=== PATIENT | male | born 1970 | race Caucasian/White ===

== ENCOUNTER 2024-10-15 06:05 | Observation (INO) ==
--- NOTE | 2024-09-27 13:01 | PAT Medication Instructions ---
Medication Instructions Date of Service September 27, 2024 Home Medications Medication Instructions Recorded diclofenac sodium 1 % topical gel 4 g topical QID #100 grams 04/27/24 baclofen 10 mg tablet 10 mg PO BID #60 tabs 07/30/24 meloxicam 7.5 mg tablet 7.5 mg PO DAILY #30 tabs 08/17/24 gabapentin 300 mg capsule 300 mg PO TID #90 caps 09/01/24 hydroxyzine pamoate 25 mg capsule (Vistaril) 25 mg PO HS PRN Anxiety lisinopril 10 mg tablet 10 mg PO QAM pravastatin 40 mg tablet 40 mg PO QAM sertraline 200 mg capsule 200 mg PO QAM medical marijuana 1 dose inhalation UD PRN anxiety/sleep diclofenac sodium 1 % topical gel 4 g topical QID baclofen 10 mg tablet 10 mg PO BID meloxicam 7.5 mg tablet 7.5 mg PO DAILY gabapentin 300 mg capsule 300 mg PO TID aripiprazole 5 mg tablet 5 mg PO HS buspirone 7.5 mg tablet 7.5 mg PO HS ASK your surgeon for instructions meloxicam 7.5 mg tablet 7.5 mg PO DAILY STOP taking 24 hours before surgery diclofenac sodium 1 % topical gel 4 g topical QID DO NOT take the morning of surgery lisinopril 10 mg tablet 10 mg PO QAM medical marijuana 1 dose inhalation UD PRN anxiety/sleep Take morning of surgery With a small sip of water, OTHERWISE NOTHING TO EAT OR DRINK AFTER MIDNIGHT: pravastatin 40 mg tablet 40 mg PO QAM sertraline 200 mg capsule 200 mg PO QAM baclofen 10 mg tablet 10 mg PO BID gabapentin 300 mg capsule 300 mg PO TID Take evening before surgery hydroxyzine pamoate 25 mg capsule (Vistaril) 25 mg PO HS PRN Anxiety (if needed) medical marijuana 1 dose inhalation UD PRN anxiety/sleep (if needed) baclofen 10 mg tablet 10 mg PO BID gabapentin 300 mg capsule 300 mg PO TID aripiprazole 5 mg tablet 5 mg PO HS buspirone 7.5 mg tablet 7.5 mg PO HS Other Notes If you have any questions please call us at [phone] or [phone] or [phone] or [phone]
--- NOTE | 2024-10-01 14:02 | Anesthesiology Consultation ---
Date of Service October 01, 2024 Assessment & Plan (1) Encounter for pre-operative examination: Infectious disease screening: Per assessment on 10/01/24- No known recent infectious disease contacts or current infectious disease symptoms. Chart Review Chart Review: Acceptable Risk for Surgery and Patient seen in Pre Admission Testing Teaching & Discussion Pre-Anesthesia Teaching/Discussion Notes: Instructed NPO after midnight before surgery,except medications with 15 cc of water. Medication instructions provided according to the PAT guidelines. History Surgery Operation Date: 10/15/24 12:50 Proposed Procedures p L3,L4 Laminectomy - Sedrick Salas MD Height/Weight Height: 5 ft 10 in Weight: 117.2 kg Allergies Allergy/AdvReac Type Severity Reaction Status Date / Time atorvastatin [From Lipitor] AdvReac Unknown Joint Pain Verified 09/23/24 13:53 Medications Home Medications Medication Instructions Recorded Confirmed Last Taken hydroxyzine pamoate 25 mg capsule 25 mg PO HS PRN Anxiety 01/08/24 09/23/24 Unknown (Vistaril) lisinopril 10 mg tablet 10 mg PO QAM 01/08/24 09/23/24 Unknown pravastatin 40 mg tablet 40 mg PO QAM 01/08/24 09/23/24 Unknown sertraline 200 mg capsule 200 mg PO QAM 01/08/24 09/23/24 Unknown diclofenac sodium 1 % topical gel 4 g topical QID #100 grams 04/27/24 09/23/24 Unknown meloxicam 7.5 mg tablet 7.5 mg PO DAILY #30 tabs 08/17/24 09/23/24 Unknown gabapentin 300 mg capsule 300 mg PO TID #90 caps 09/01/24 09/23/24 Unknown aripiprazole 5 mg tablet 5 mg PO HS 09/23/24 09/23/24 Unknown buspirone 7.5 mg tablet 7.5 mg PO HS 09/23/24 09/23/24 Unknown baclofen 10 mg tablet 10 mg PO BID #60 tabs 09/28/24 Unknown Past Medical History Medical History Anxiety Cervical stenosis of spinal canal Dyslipidemia HTN (hypertension) Hyperlipidemia Lumbar pain s/p steroid injections 09/07/24 Lumbar stenosis Peripheral neuropathy Sleep apnea Cannot tolerate CPAP Tremor hands Exercise / Class Metabolic Activity III < 4 Walking/Shop/Light housework (one FS: No CP, mild SOB) Past Surgical History Surgical History History of carpal tunnel release of both wrists History of surgery on arm Right Hx of bilateral cataract extraction Hx of colonoscopy Past Anesthesia History No Hx of Anesthesia Complications and No Family Hx of Anesthesia Complications History of PONV No Hx of PONV and No Hx of Motion Sickness Social History Smoking Status: Former smoker Do You Dip or Chew Tobacco: No Smoking End Date: Quit 4-5 years ago Hx Alcohol Use: No (over 2 yrs no alcohol) Hx Substance Use: No substance use type: marijuana (Hx medical marjuana use (none current)) Review of Systems Patient denies chest pain, shortness of breath, dyspnea on exertion, fever, chills, cough, wheezing, palpitations. Physical Exam Vital Signs BP 140/74 P 79 TEMP 98.6 SP02 95%RA RESP 16 Physical Full cervical extension range of motion. Full TMJ range of motion. TMD > 3.5 finger breaths Mallampati Score III Dentition: upper front tooth chipped, missing sides/molars, + cap Lungs: clear throughout to auscultation Cardiac: regular rate and rhythm, no murmurs noted Spine: normal Carotid arteries: negative bruit Extremities: no LE edema Short, thick neck Lab Results Anesthesia Preop Results Results Anesthesia Widget: WBC 10.32 K/ul (4.8-10.8) 10/01/24 Hgb 14.2 g/dl (14.0-18.0) 10/01/24 Hct 43.3 % (42.0-52.0) 10/01/24 Plt 239 K/uL (130-400) 10/01/24 Na 139 mmol/L (136-145) 10/01/24 K 4.4 mmol/L (3.5-5.1) 10/01/24 Cl 103 mmol/L (98-107) 10/01/24 CO2 30 mmol/L (21-32) 10/01/24 BUN 17 mg/dl (6-23) 10/01/24 Creat 1.23 mg/dl (0.6-1.4) 10/01/24 Glucose Level 73 mg/dl (70-99(Fasting)) 10/01/24 PT 10.3 Seconds (9.0-12.0) 10/01/24 PTT 27 Seconds (21-31) 10/01/24 INR 0.9 (0.9-1.1) 10/01/24 HA1c 6.1 % (4.5-5.6) H 10/01/24 Testing Electrocardiogram Date: 10/01/24 NSR at 63bpm. "Normal ECG"
[2024-10-15] MEDS: LR 60ML/HR IV SCH (06:36)
[2024-10-15] MEDS: LR 15ML/HR IV SCH (06:36)
[2024-10-15] MEDS ORDERED: fentaNYL citrate PF 100 MCG/2 ML VIAL ONE (06:36)
[2024-10-15] MEDS ORDERED: MIDAZOLAM HCL 1 MG/ML 2ML VIAL ONE (06:36)
[2024-10-15] MEDS ORDERED: DEXAMETHASONE SOD INJ 4 MG/ML VIAL ONE (06:36)
[2024-10-15] MEDS ORDERED: PROPOFOL IV EMULSION 10 MG/ML 20 ML VIAL IV ONE (06:36)
[2024-10-15] MEDS ORDERED: ONDANSETRON INJ 2 MG/ML 2 ML VIAL ONE (06:36)
[2024-10-15] MEDS ORDERED: LIDOCAINE 2% 2 ML VIAL/AMP(20MG/ML) INFIL ONE (06:36)
[2024-10-15] MEDS ORDERED: ROCURONIUM BROMIDE 10 MG/ML 5 ML VIAL IV ONE (06:37)
[2024-10-15] MEDS ORDERED: ONDANSETRON INJ 2 MG/ML 2 ML VIAL IV PRN ×2 (07:07→09:36)
[2024-10-15] MEDS ORDERED: ATROPINE SULFATE 0.1 MG/ML 10ML SYR IV PRN (07:07)
[2024-10-15] MEDS ORDERED: ePHEDrine sulfate 50 MG/ML AMP IV PRN (07:07)
--- NOTE | 2024-10-15 07:33 | History & Physical Bridge Note ---
Date of Service October 15, 2024 History & Physical Bridge Note I have examined the patient, reviewed the History & Physical and in the interval since the performance of the History & Physical I have noted the following changes of clinical significance: no changes noted Plan for L4-5 laminectomy.
[2024-10-15] MEDS: ceFAZolin 2000MG 2,000 MG/15 ML SYR IV SCH ×2 (07:37→16:13)
[2024-10-15] MEDS ORDERED: PHENYLEPHRINE 100MCG/ML 5ML SYR ONE (08:03)
[2024-10-15] MEDS ORDERED: ePHEDrine sulfate 50 MG/5 ML SYR ONE (08:23)
[2024-10-15] MEDS: VANCOMYCIN HCL 1000MG/20ML VIAL ONE ×2 (08:33→09:08)
[2024-10-15] MEDS: FLOSEAL HEMOSTATIC MATRIX 10ML TOP ONE (08:51)
[2024-10-15] MEDS ORDERED: SUGAMMADEX SODIUM 200 MG/2 ML VIAL IV ONE (09:06)
[2024-10-15] MEDS: GELATIN SPONGE SZ 100 ONE (09:09)
[2024-10-15] MEDS: BUPIVACAINE 0.5 % 5 MG/1 ML MPF 30ML VIAL ONE (09:14)
--- NOTE | 2024-10-15 09:20 | Post Operative Brief Note ---
PG Immediate Post Op with CF Date of Surgery October 15, 2024 Pre & Post Diagnosis Pre-Op Diagnosis: Lumbar Stenosis with Claudication Lumbar Radiculopathy Lumbar Spondylosis Post-Op Diagnosis: Lumbar Stenosis with Claudication Lumbar Radiculopathy Lumbar Spondylosis I identified the patient and participated in the time-out.: Yes Procedure L3 Laminectomy L4 Laminectomy Surgeon Sedrick Salas MD Grated Cheese Maker Namrata CARABALLO Estimated Blood Loss 50 Findings Consistent with Post-Op Diagnosis Specimens Specimen Description: none per surgeon Drains Sandeep-Valdez Drain (10f) Complications none Disposition Disposition: Recovery Room
[2024-10-15] MEDS ORDERED: METOCLOPRAMIDE HCL INJ 5 MG/ML 2 ML VIAL IV PRN (09:36)
[2024-10-15] MEDS ORDERED: PROMETHAZINE 12.5 MG/50.5 ML BAG IV PRN (09:36)
[2024-10-15] MEDS ORDERED: NALOXONE HCL 0.4 MG/1 ML VIAL/CARP IV PRN (09:36)
[2024-10-15] MEDS ORDERED: ALUMINUM/MAGNESIUM SUSP 30 ML UDC PO PRN (09:36)
[2024-10-15] MEDS ORDERED: SOD PHOSPHATE/SOD BIPHOSPHATE ENEMA 132 ML BTL PR PRN (09:36)
[2024-10-15] MEDS ORDERED: DO NOT ADMINISTER PNEUMOCOCCAL VACCINE PRN (09:36)
[2024-10-15] MEDS ORDERED: ACETAMINOPHEN 1,000 MG/100 ML VIAL IV PRN (09:36)
[2024-10-15] MEDS ORDERED: MAGNESIUM HYDROXIDE SUSP 30 ML UDC PO PRN (09:36)
[2024-10-15] MEDS ORDERED: ONDANSETRON 4 MG OD TAB PO PRN (09:36)
[2024-10-15] MEDS ORDERED: oxyCODONE HCL IR 5 MG TAB (IMMEDIATE RELEASE) PO PRN (09:36)
[2024-10-15] MEDS ORDERED: DO NOT ADMINISTER FLU VACCINE PRN (09:36)
[2024-10-15] MEDS ORDERED: LORazepam 2 MG/1 ML VIAL IV PRN (09:36)
[2024-10-15] MEDS ORDERED: HYDROmorphone INJ 0.5 MG/0.5 ML SYR IV PRN (09:36)
[2024-10-15] MEDS ORDERED: FAMOTIDINE 20 MG TAB PO PRN (09:36)
[2024-10-15] MEDS ORDERED: ACETAMINOPHEN 500 MG TAB PO PRN (09:36)
[2024-10-15] MEDS ORDERED: hydrOXYzine HCl 25 MG TAB PO PRN ×2 (09:36→09:42)
[2024-10-15] MEDS ORDERED: diphenhydrAMINE Capsule 25 MG CAP PO PRN (09:36)
[2024-10-15] MEDS ORDERED: bisacodyL 10 MG SUPP PR PRN (09:36)
--- NOTE | 2024-10-15 09:43 | Operative Report ---
PG Post Operative Report Pre & Post Diagnosis Operation Date: 10/15/24 07:30 Pre-Op Diagnosis: Lumbar stenosis, lumbar radiculopathy, neurogenic claudication Post-Op Diagnosis: Lumbar stenosis, lumbar radiculopathy, neurogenic claudication I identified the patient and participated in the time-out.: Yes Procedure Operation Date: 10/15/24 07:30 Actual Procedures L3 laminectomy with medial facetectomy (19426) L4 Laminectomy with medial facetectomy (97815) Surgeon Sedrick Salas MD Environmental Education Specialist Namrata CARABALLO Estimated Blood Loss 50 Findings Consistent with Post-Op Diagnosis Specimens None Drains ROMULO Drain Anesthesia Type General Complications none Disposition Disposition: Recovery Room Indications The patient has suffered from severe and unrelenting symptoms despite exhaustive conservative management. After discussing the benefits and risks of continued conservative management versus operative intervention, the patient elected to proceed with surgery. Description of Procedure In the preoperative holding area, the patient's lumbar spine was marked with a marking pen. The patient was taken to the operating room and anesthesia was initiated. The patient was placed prone on a Sandeep table with Roosevelt Frame. The patients back was prepped and draped in typical sterile fashion. Antibiotics were administered. A timeout was performed. Skin incision was approximated using preoperative fluoroscopy shots. The skin was incised with a 10 blade scalpel. Bovie electrocautery was used to dissect down to the lumbodorsal fascia and control bleeding. Fascia was split midline over the spinous processes of L3 and L4. I then completed subperiosteal dissection to expose the L3 and L4 lamina with care taken to preserve the facet capsules at the L3-4 and L4-5 level. Mayuri clamp was placed onto the L4 spinous process and a second x-ray was taken to verify the correct level. I then removed the spinous processes of L3 and L4 with a rongeur. The lamina of the L4 level was then thinned with a high-speed bur to expose the ligamentum flavum, additional bone was removed with a Kerrison rongeur ensuring to leave adequate bone stock at the L4-5 pars interarticularis to prevent iatrogenic instability. Then used a nerve hook to split the ligamentum flavum midline, ligamentum flavum was removed completely between the L4 and L5 levels using a Kerrison rongeur with Kerr elevator used to protect the dura. There is found to be hypertrophy of the facet joints at L4-5 bilaterally contributing to his lateral recess stenosis and neurologic compression. The facet joints were undercut bilaterally, less than 50% of the facet joint was resected to ensure continuing stability. I was now able to easily pass a Murray ball probe into the L4-5 foramen bilaterally as well as along the L4-5 recess bilaterally with excellent decompression of the traversing nerve roots. I then moved rostrally to the L3 lamina. Once again this was thinned with a high-speed bur to expose the ligamentum flavum. Further lamina was resected using Kerrison rongeur. Care was taken to maintain adequate bone stock of the pars interarticularis bilaterally. Tenderness with the ligamentum flavum midline with a nerve hook, I then used Kerrison rongeurs to remove the ligamentum flavum between L3-4 kriss with Kerrison rongeur using Kerr elevator to protect the dura. Again noted there is facet hypertrophy contributing to lateral recess stenosis. Medial facet joints were undercut bilaterally using a Kerrison rongeur to decompress the lateral recess. Once again I was able to pass a Murray ball probe into the bilateral foramen at L3-4 as well as along the lateral recess at L3-4 bilaterally ensuring good decompression of the traversing nerve roots at the L3-4 interspace. Bleeding was controlled with bipolar electrocautery and hemostatic agents. Drain was placed deep exiting out through the skin. Fascia was closed with running oh strata fix suture. Subcutaneous layer was irrigated once again, vancomycin powder applied along the wound edges, and the skin was closed with 2- 0 Vicryl and dori. Sterile dressing was applied, drain attached to suction. Patient was transferred back to the hospital bed and taken to PACU in stable condition. I attest to the content of the Intraoperative Record and any orders documented therein. Any exceptions are noted below.
[2024-10-15] MEDS: fentaNYL citrate PF 100 MCG/2 ML VIAL IV PRN (09:45)
--- NOTE | 2024-10-15 10:23 | Fluoroscopy Report ---
FL spine 1V any level CLINICAL HISTORY: L3-L4 LAMINECTOMIES COMPARISON STUDY: None FLUOROSCOPY TIME: 8 seconds FLUOROSCOPY IMAGES: 3 EXPOSURE DOSE: 3.2 mGy FINDINGS: Fluoroscopy was provided for lumbar laminectomy. IMPRESSION: Intraoperative fluoroscopy. ACT 112: Negative or not required by law. Electronically signed by: Charli Bryant M.D. 10/15/2024 10:22 AM
--- NOTE | 2024-10-15 12:22 | Anesthesiology Progress Note ---
Date of Service October 15, 2024 Anesthesia Post Procedure Vital Signs Vital Signs: Temp Pulse Resp BP Pulse Ox O2 Del Method O2 Flow Rate 10/15/24 12:00 75 17 104/77 97 Room Air 2 10/15/24 11:30 75 13 113/93 96 Room Air 2 10/15/24 11:15 79 10 L 101/67 94 Room Air 2 10/15/24 11:00 80 13 107/77 95 Room Air 2 10/15/24 10:45 36.8 C 77 14 107/81 94 Room Air 2 10/15/24 10:30 79 12 115/61 94 Room Air 2 10/15/24 10:20 82 13 136/86 95 Room Air 2 10/15/24 10:10 83 12 138/101 H 96 Room Air 2 10/15/24 10:00 79 10 L 134/97 95 Room Air 2 10/15/24 09:50 80 12 128/85 98 Oxymask 5 10/15/24 09:40 76 12 115/92 98 Oxymask 5 10/15/24 09:34 81 18 131/99 94 Oxymask 10 10/15/24 06:21 36.7 C 65 18 131/91 95 Room Air Pain Intensity Back: Pain Intensity: 3 Right Leg: Pain Intensity: 5 Right Arm: Pain Intensity: 4 Transfer of Care Handoff Completed per policy Notes Mental Status: alert / awake / arousable Patient Amnestic to Procedure: Yes Nausea / Vomiting: adequately controlled Pain: adequately controlled Airway Patency, RR, SpO2: stable & adequate BP & HR: stable & adequate Hydration State: stable & adequate Anesthetic Complications: no major complications apparent and Pt Satisfied with anesthetic care
[2024-10-15] MEDS: KETOROLAC 30 MG/ML VIAL IV SCH (14:50)
[2024-10-15] MEDS: tiZANidine HCL 4 MG TABLET PO SCH (15:13)
[2024-10-15] MEDS: GABAPENTIN 300 MG CAP PO SCH (15:13)
[2024-10-15] MEDS: DOCUSATE SODIUM/SENNA 50/8.6MG TAB PO SCH (21:17)
[2024-10-15] MEDS: ARIPiprazole 5 MG TAB PO SCH (21:17)
[2024-10-15] MEDS: busPIRone 7.5 MG TAB PO SCH (21:18)
[2024-10-15] MEDS: BACLOFEN 10 MG TAB PO SCH (21:19)
[2024-10-16] MEDS: KETOROLAC 30 MG/ML VIAL IV PRN (00:17)
[2024-10-16] MEDS: LORazepam 0.5 MG TAB PO PRN (00:18)
[2024-10-16] MEDS: POLYETHYLENE (MIRALAX) 17 GM PACK PO SCH (05:50)
[2024-10-16 07:34] VITALS: BP 111/72; PULSE 76; RESP 16; TEMP 97.5; O2SAT 96
[2024-10-16] MEDS: PRAVASTATIN SOD 40 MG TAB PO SCH (07:36)
[2024-10-16] MEDS: lisinopril 10 MG TAB PO SCH (07:36)
--- NOTE | 2024-10-16 10:07 | Orthopedic Progress Note ---
Date of Service October 16, 2024 Assessment & Plan (1) S/P lumbar laminectomy: Subjective s/p Lumbar decompression, pre op radicular pain resolved, no issues overnight Review of Systems All systems reviewed & are unremarkable except as noted in HPI & below. Physical Exam drain low output, will dc neuro intact L2-S1 myotomes and dermatomes bilat Results & Data Results & Data Laboratory Results . Diagnostic Findings . PG Care Time/CCT Total # of Minutes Spent Total Time Spent with Patient: Total time spent is greater than 50% in coordination of care (as documented) at patient's floor/unit and/or counseling patient: Coding Level of Care Code 65001 Post Operative Follow-Up Diagnoses S/P lumbar laminectomy Z98.890
--- NOTE | 2024-10-16 10:21 | Discharge Summary ---
Date of Service October 16, 2024 Principal Diagnosis Same as "Discharge Diagnosis" noted below under Discharge Instructions. Discharge Exam drain low output, will dc neuro intact L2-S1 myotomes and dermatomes bilat Discharge Data Procedures Performed Operation Date: 10/15/24 07:30 Actual Procedures p L3, L4 Laminectomies(Not Applicable) - Sedrick Salas MD Ordered Studies 10/15/24 07:30 [place] spine 1V any level Routine Hospital Course (1) S/P lumbar laminectomy: (2) Lumbar radiculopathy: Plan Uneventful post op course following lumbar decompression. Patient voided, tolerated PO diet, pain well controlled, ambulating well. PG Care Time/CCT Total # of Minutes Spent Total Time Spent with Patient: Total time spent is greater than 50% in coordination of care (as documented) at patient's floor/unit and/or counseling patient: Discharge Plan Discharge Items Patient Disposition: Home - Self-Care Reason For Visit: Spinal Stenosis, Lumbar Region with Neurogenic Cla Discharge Diagnosis: Lumbar Stenosis with Radiculopathy Activity: As commented below Activity Comment: follow instructions from office Lifting: No more than 10 pounds Bathing Comment: Do not submerge in tubs/pools etc, shower on day 3, pat incision dry Non-emergency contact: Surgeon Call non-emergency contact if: your symptoms worsen, your pain is worsening, your temperature is above 101, your wound has increased redness and your wound has increased drainage Follow-up/Referrals: Zack Sanchez MD [Outside Practitioners] - Diet: Regular Addtl Attending Provider Instructions: Follow post op instructions from office Follow up 2 weeks in office Pending Studies at Discharge: No Stand-Alone Forms: [facility] [employer], Smoking Cessation Medications and DC Order Prescriptions: New oxycodone 5 mg Tablet 5 - 10 mg PO Q6 PRN (Reason: post op pain) Qty: 60 0RF gabapentin 300 mg Capsule 300 mg PO TID 30 Days Qty: 90 0RF Continued baclofen 10 mg tablet 10 mg PO BID Qty: 60 2RF meloxicam 7.5 mg tablet 7.5 mg PO DAILY Qty: 30 0RF lisinopril 10 mg tablet 10 mg PO QAM pravastatin 40 mg tablet 40 mg PO QAM sertraline 200 mg capsule 200 mg PO QAM hydroxyzine pamoate [Vistaril] 25 mg capsule 25 mg PO HS PRN (Reason: Anxiety) buspirone 7.5 mg Tablet 7.5 mg PO HS aripiprazole 5 mg Tablet 5 mg PO HS Discontinued diclofenac sodium 1 % gel 4 g topical QID Qty: 100 2RF Rx Instructions: apply to wrist b/l gabapentin 300 mg capsule 300 mg PO TID Qty: 90 0RF Discharge Orders: Discharge Order (Routine); Ordered 10/16/24 Ordered By: Sedrick Salas Admission Data Admit Date/Time: 10/15/24 09:36 Attending Provider: Sedrick Salas Admit Provider: Sedrick Salas Primary Care Provider: Martha Jonas
== END 2024-10-16 12:30 | disposition home or self-care (01) ==
LOC: PACUINP 06:05 → ASU 06:05 → 3E 14:24